=== PATIENT | male | born 1960 | race Caucasian/White ===

== ENCOUNTER 2020-04-12 00:25 | Emergency (ER) | payer MEDICAID, OTHER ==
[~2020-04-12] VITALS: Ht 165.1 cm; Wt 79.4 kg
[2020-04-12 00:53] VITALS: BP 140/86
--- NOTE | 2020-04-12 00:55 | NUR ---
pt triaged and waiting in tent
--- NOTE | 2020-04-12 00:56 | NUR ---
59m presents to ED from home with c/o sternal chest pain that is non radiating. pt reports 10/10 aching stabbing pain. stated that he is confirmed positive COVID x 2 weeks. Facial grimacing observed and pt grabbing chest. reports myalgia. denies cough. denies headache/blurry vision. CBL sounds. observed use of accessory muscle with inhaling and exhaling. denies n/v/d. pt states that his whole family is positive with Covid. VSS. pt afebrile at triage. MILEY Munguia made aware of pt status. pt triaged and left in COVID tent for MSE. pmhx: arthritis, asthma, COVID + nka
[2020-04-12] MEDS ORDERED: ACETAMINOPHEN EXTRA STRENGTH 500 MG TAB PO ONE (01:25)
[2020-04-12 01:43] LABS: BASOPHILS % (AUTO) 0.2 % (0.0-2.0); EOSINOPHILS % (AUTO) 0.2 % (0.0-4.0); HEMATOCRIT 41.1 % (36-52); HEMOGLOBIN 13.8 g/dL (12.0-18.0); LYMPHOCYTES # (AUTO) 3.7 K/uL (2.0-11.5); LYMPHOCYTES % (AUTO) 34.5 % (20.5-51.1); MEAN CORPUSCULAR HEMOGLOBIN 32 pg (27-31); MEAN CORPUSCULAR HGB CONC 34 g/dL (33-37); MEAN CORPUSCULAR VOLUME 95.1 fL (80-94); MONOCYTES # (AUTO) 0.8 K/uL (0.8-1.0); MONOCYTES % (AUTO) 7.8 % (1.7-9.3); NEUTROPHILS # (AUTO) 6.2 K/uL (1.8-7.7); NEUTROPHILS % (AUTO) 57.3 % (42.2-75.2); PLATELET COUNT (AUTO) 234 K/uL (140-450); RED BLOOD CELL COUNT(AUTO) 4.32 MIL/uL (4.20-6.10); RED CELL DISTRIBUTION WIDTH 13.7 % (11.6-13.7); WHITE BLOOD COUNT (AUTO) 10.8 K/uL (4.8-10.8)
[2020-04-12 01:59] LABS: ALBUMIN 4.2 g/dL (3.4-5.0); ANION GAP 16.3 (8-16); CARBON DIOXIDE 25.8 mmol/L (21-32); CREATININE 0.9 mg/dL (0.6-1.3); POTASSIUM 4.1 mmol/L (3.5-5.1); TOTAL BILIRUBIN 0.3 mg/dL (0.0-1.0)
[2020-04-12 03:36] VITALS: BP 140/86
--- NOTE | 2020-04-12 03:36 | NUR ---
Patient discharged with v/s stable. Written and verbal after care instructions given and explained. Patient verbalized understanding. Ambulatory with steady gait. All questions addressed prior to discharge. Advised to follow up with PMD.
== END 2020-04-12 03:36 | disposition home or self-care (01) ==
LOC: MED 00:25
DX: U07.1 COVID-19 (principal); J12.89 Other viral pneumonia; R07.9 Chest pain, unspecified; J45.909 Unspecified asthma, uncomplicated; M19.90 Unspecified osteoarthritis, unspecified site
CPT/HCPCS: 36415; 71045; 80053; 83690; 83880; 84484; 85025; 93005; 99285; Q0092

== ENCOUNTER 2020-04-20 12:58 | Emergency (ER) | payer OTHER ==
[~2020-04-20] VITALS: Ht 165.1 cm; Wt 77.7 kg
[2020-04-20 13:10] VITALS: BP 122/83
[2020-04-20] MEDS ORDERED: ALBUTEROL SULFATE/IPRATROPIU 3 ML SOL IH ONE (13:30)
[2020-04-20] MEDS ORDERED: predniSONE 20 MG TAB PO ONE (13:30)
[2020-04-20] MEDS ORDERED: ALBUTEROL 0.083% 2.5 MG/3 ML NEBU INH ONE (13:30)
[2020-04-20 14:15] VITALS: BP 121/66
== END 2020-04-20 14:15 | disposition home or self-care (01) ==
LOC: MED 12:58
DX: U07.1 COVID-19 (principal); J45.909 Unspecified asthma, uncomplicated
CPT/HCPCS: 71045; 94640; 99283; J7512; J7613; Q0092

== ENCOUNTER 2020-04-22 19:36 | Emergency (ER) | payer OTHER ==
[~2020-04-22] VITALS: Ht 165.1 cm; Wt 77.6 kg
[2020-04-22 19:56] VITALS: BP 135/85
--- NOTE | 2020-04-22 20:01 | NUR ---
Dr. Jo examining patient.
[2020-04-22] MEDS: ALBUTEROL SULFATE/IPRATROPIU 3 ML SOL IH ONE (20:20)
--- NOTE | 2020-04-22 20:21 | NUR ---
Respiratory Therapist at bedside for respiratory intervention. Patient tolerated .
--- NOTE | 2020-04-22 20:30 | NUR ---
PT BIB SELF C/O SOB X1 MONTH SINCE COVID 19 INFECTION, PT STATES HE HAD NEGATIVE TEST RESULTS BUT STILL GET SOB, INCREASES AT NIGHT. - CP, - FEVER, -COUGH, -N/V/D. RR EVEN, SYMMETRICAL, AND NON-LABORED. COLOR WNL, MOIST MUCUS MEMBRANES, PT SPEAKING IN FULL COMPLETE SENTENCES, AAOX4, STEADY GAIT.
--- NOTE | 2020-04-22 20:40 | NUR ---
X-Ray at bedside.
[2020-04-22] MEDS: NACL 0.9% 500 ML IV ONE (20:58)
[2020-04-22] MEDS: methylPREDNISolone SS 125 MG/2 ML VIAL IVP ONE (20:59)
[2020-04-22] MEDS: MAG SULF 2000 MG/WATER PREMIX 50 ML IV ONE (21:00)
[2020-04-22] MEDS: LORazepam 2 MG/ML VIAL IVP ONE (21:23)
[2020-04-22 21:38] VITALS: BP 130/82
--- NOTE | 2020-04-22 21:38 | NUR ---
PT REPORTS THAT HE IS FEELING BETTER NOW AND REPORTS NO SOB AT THIS TIME. PT RECIEVING MAGNESIUM AT THIS TIME, TOLERATING WELL.
== END 2020-04-22 22:30 | disposition home or self-care (01) ==
LOC: MED 19:36
DX: J45.901 Unspecified asthma with (acute) exacerbation (principal); F41.9 Anxiety disorder, unspecified
CPT/HCPCS: 71045; 93005; 94640; 96365; 96375; 99284; J2060; J2930; J3475

== ENCOUNTER 2020-04-27 23:44 | Emergency (ER) | payer OTHER ==
[~2020-04-27] VITALS: Ht 165.1 cm; Wt 80.3 kg
[2020-04-27 23:46] VITALS: BP 163/73
--- NOTE | 2020-04-27 23:54 | NUR ---
PT TAKEN TO BED 7
--- NOTE | 2020-04-28 00:01 | NUR ---
Dr. Hogan examining patient.
--- NOTE | 2020-04-28 00:15 | NUR ---
COVERING PRIMARY RN FOR LUNCH RELIEF----- 60 Y/O M PRESENTS TO ED WITH C/O SOB. 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 PT REPORTS FEELINGS OF NOT BEING ABLE TO CATCH HIS BREATH. PT TESTED COVID-19 NEGATIVE X17 DAYS AGO. LUNGS CLEAR THROUGHOUT, O2 SAT AT 98% RA. PT ABLE TO SPEAK FULL SENTENCES WITH MINIMAL DISTRESS. PT SELF MEDICATED WITH ALBUTEROL, PT REPORTS NO RELIEF.
--- NOTE | 2020-04-28 00:51 | NUR ---
X-Ray at bedside.
[2020-04-28 01:30] VITALS: BP 163/73
--- NOTE | 2020-04-28 01:30 | NUR ---
DPatient discharged with v/s stable. Written and verbal after care instructions given and explained. Patient alert, oriented and verbalized understanding of instructions. Ambulatory with steady gait. All questions addressed prior to discharge. ID band removed. Patient advised to follow up with PMD. Rx of MIRALAX, AND PREDNISONE given. Patient educated on indication of medication including possible reaction and side effects. Opportunity to ask questions provided and answered.
== END 2020-04-28 01:30 | disposition home or self-care (01) ==
LOC: MED 23:44
DX: R06.02 Shortness of breath (principal); R42 Dizziness and giddiness; J45.909 Unspecified asthma, uncomplicated
CPT/HCPCS: 71045; 99283